=== PATIENT | female | born 1980 | race Caucasian/White ===

== ENCOUNTER 2016-12-23 17:26 | Observation (INO) | payer MEDICAID ==
[2016-12-23] MEDS ORDERED: TERBUTALINE SULFATE 1 MG/ML VIAL ONE (18:25)
[2016-12-23] MEDS ORDERED: RINGERS SOLUTION,LACTATED 1,000 ML IV ONE ×2 (18:25→18:30)
[2016-12-23] MEDS ORDERED: TERBUTALINE SULFATE 1 MG/ML VIAL SQ PRN (18:30)
[2016-12-23 20:12] LABS: APPEARANCE,URINE CLOUDY (CLEAR); GLUCOSE, URINE (UA) NEGATIVE (NEGATIVE); KETONES,URINE TRACE mg/dL (NEGATIVE); LEUKOCYTE ESTERASE ,URINE SMALL (NEGATIVE); OCCULT BLOOD,URINE NEGATIVE (NEGATIVE); PROTEIN,URINE SEE CONFIRM (NEGATIVE)
[2016-12-23 20:14] LABS: ADD UA MICROSCOPIC YES
[2016-12-23 20:26] LABS: RBC,URINE 0-2 /HPF (0-2); SQUAMOUS EPITHELIAL CELL,UR Moderate /LPF (None Seen); SULFOSALICYLIC ACID,URINE 3+ (Negative)
[2016-12-23 21:39] VITALS: BP 109/62
== END 2016-12-23 21:05 | disposition home or self-care (01) ==
LOC: 4S 17:26
PROVIDERS: ADMIT Obstetrics & Gynecology; ATTEND Obstetrics & Gynecology
DX: O62.9 Abnormality of forces of labor, unspecified (principal); O26.893 Other specified pregnancy related conditions, third trimester; M54.9 Dorsalgia, unspecified; Z3A.34 34 weeks gestation of pregnancy
CPT/HCPCS: 59025; 81001; 81002; 81050; 84156; 87086; 96372; G0378; J3105; J7120

== ENCOUNTER 2016-12-24 21:10 | Observation (INO) | payer MEDICAID ==
[~2016-12-24] VITALS: Ht 152.4 cm; Wt 79.8 kg
[2016-12-24 23:08] VITALS: BP 117/80
== END 2016-12-24 23:10 | disposition home or self-care (01) ==
LOC: 4S 21:10
PROVIDERS: ADMIT Obstetrics & Gynecology; ATTEND Obstetrics & Gynecology
DX: O26.893 Other specified pregnancy related conditions, third trimester (principal); Z3A.34 34 weeks gestation of pregnancy
CPT/HCPCS: 59025; 82575; G0378

== ENCOUNTER 2017-01-04 09:33 | Observation (INO) | payer MEDICAID ==
[2017-01-04 09:50] VITALS: BP 117/65
[2017-01-04] MEDS ORDERED: PREN1TAB80 PO (09:50)
== END 2017-01-04 11:45 | disposition home or self-care (01) ==
LOC: 4S 09:33
PROVIDERS: ADMIT Obstetrics & Gynecology; ATTEND Obstetrics & Gynecology
DX: O62.9 Abnormality of forces of labor, unspecified (principal); O09.523 Supervision of elderly multigravida, third trimester; Z3A.35 35 weeks gestation of pregnancy
CPT/HCPCS: 59025

== ENCOUNTER 2017-01-04 14:36 | Observation (INO) | payer MEDICAID ==
[~2017-01-04] VITALS: Ht 157.5 cm; Wt 79.8 kg
[~2017-01-04 14:36] MED LIST: PREN1TAB80 PO
[2017-01-12 10:55] VITALS: BP 126/76
== END 2017-01-12 11:55 | disposition home or self-care (01) ==
LOC: 4S 01-12 10:01
PROVIDERS: ADMIT Obstetrics & Gynecology; ATTEND Obstetrics & Gynecology
DX: O09.523 Supervision of elderly multigravida, third trimester (principal); Z3A.37 37 weeks gestation of pregnancy
CPT/HCPCS: 59025; 76805; G0378

== ENCOUNTER 2017-01-15 10:00 | Observation (INO) | payer MEDICAID ==
[~2017-01-15] VITALS: Ht 157.5 cm; Wt 79.8 kg
== END 2017-01-15 11:15 | disposition home or self-care (01) ==
LOC: 4S 10:00
PROVIDERS: ADMIT Obstetrics & Gynecology; ATTEND Obstetrics & Gynecology
DX: O09.523 Supervision of elderly multigravida, third trimester (principal); Z3A.38 38 weeks gestation of pregnancy
CPT/HCPCS: 59025; G0378

== ENCOUNTER 2017-01-19 10:00 | Observation (INO) | payer MEDICAID ==
[~2017-01-19] VITALS: Ht 157.5 cm; Wt 80.3 kg
== END 2017-01-19 12:20 | disposition home or self-care (01) ==
LOC: 4S 10:00
PROVIDERS: ADMIT Obstetrics & Gynecology; ATTEND Obstetrics & Gynecology
DX: O09.523 Supervision of elderly multigravida, third trimester (principal); Z3A.39 39 weeks gestation of pregnancy
CPT/HCPCS: 59025; 76805; G0378

== ENCOUNTER 2017-01-21 14:40 | Inpatient (IN) | payer MEDICAID ==
[~2017-01-21] VITALS: Ht 157.5 cm; Wt 80.7 kg
[2017-01-21] MEDS ORDERED: OXYTOCIN 30 UNITS/LACT RINGERS 500 ML IV ONE (15:26)
[2017-01-21] MEDS ORDERED: RINGERS SOLUTION,LACTATED 1,000 ML IV PRN (15:26)
[2017-01-21] MEDS ORDERED: MISOPROSTOL 25 MCG TABLET PR ONE (15:30)
[2017-01-21] MEDS ORDERED: TERBUTALINE SULFATE 1 MG/ML VIAL SQ PRN (15:30)
[2017-01-21] MEDS ORDERED: METOCLOPRAMIDE HCL 5 MG/ML 2 ML VIAL IVP PRN (15:30)
[2017-01-21] MEDS ORDERED: METHYLERGONOVINE MALEATE 0.2 MG/ML VIAL IM PRN (15:30)
[2017-01-21] MEDS ORDERED: CITRIC ACID/SODIUM CITRATE 30 ML SOLUTION UDCUP PO PRN (15:30)
[2017-01-21] MEDS ORDERED: CARBOPROST TROMETHAMINE 250 MCG/ML AMP IM PRN (15:30)
[2017-01-21] MEDS ORDERED: DINOPROSTONE 10 MG VAGINAL SUPPOSITORY VG ONE (16:00)
[2017-01-21 16:37] LABS: BASOPHILS % (AUTO) 0.3 % (0.0-2.0); EOSINOPHILS % (AUTO) 0.6 % (1.0-6.0); HEMATOCRIT 32.4 % (36-46); HEMOGLOBIN 10.9 g/dL (12.0-16.0); LYMPHOCYTES # (AUTO) 1.9 K/uL (1.0-4.8); LYMPHOCYTES % (AUTO) 15.9 % (22.0-44.0); MEAN CORPUSCULAR HEMOGLOBIN 28.7 pg (26.0-34.0); MEAN CORPUSCULAR HGB CONC 33.8 G/dL (31.0-37.0); MEAN CORPUSCULAR VOLUME 85 fL (80-100); MONOCYTES # (AUTO) 0.8 K/uL (0.1-1.0); MONOCYTES % (AUTO) 6.6 % (2.0-9.0); NEUTROPHILS % (AUTO) 76.6 % (40.0-70.0); RED BLOOD CELL COUNT(AUTO) 3.81 MIL/uL (4.00-5.20); RED CELL DISTRIBUTION WIDTH 13.8 % (11.5-14.5); WHITE BLOOD COUNT (AUTO) 11.7 K/uL (4.5-11.0)
[2017-01-21 16:42] VITALS: BP 122/72
[2017-01-21] MEDS ORDERED: INFLUENZA VIRUS VACCINE QVS 2017-18 (3YR+)/PF 60 MCG/0.5 ML SYRINGE IM ONE (16:45)
[2017-01-21] MEDS: RINGERS SOLUTION,LACTATED 1,000 ML IV SCH ×2 (17:41→19:58)
[2017-01-21] MEDS ORDERED: OXYGEN THERAPY IH SCH (20:00)
[2017-01-22] MEDS: RINGERS SOLUTION,LACTATED 1,000 ML IV SCH ×5 (00:18→20:47)
[2017-01-22] MEDS: FentaNYL CITRATE-PF 100 MCG/2 ML VIAL IVP PRN ×4 (00:27→12:14)
[2017-01-22] MEDS ORDERED: OXYTOCIN 30 UNITS/LACT RINGERS 500 ML IV PRN (06:00)
[2017-01-22] MEDS ORDERED: MISOPROSTOL 25 MCG TABLET VG SCH (08:00)
[2017-01-22] MEDS ORDERED: BUPIVACAINE HCL/PF 0.25% 30 ML VIAL ONE (13:56)
[2017-01-22] MEDS ORDERED: BUPIVACAINE HCL 0.125%/NS/PF 100 ML ED ONE (13:58)
[2017-01-22] MEDS ORDERED: BUPIVACAINE HCL 0.125%/NS/PF 100 ML ED PRN (14:48)
[2017-01-22] MEDS ORDERED: DiphenhydrAMINE HCL 50 MG/ML VIAL IVP PRN (15:00)
[2017-01-22] MEDS ORDERED: ONDANSETRON HCL 4 MG/2 ML VIAL IVP PRN (15:00)
[2017-01-23] MEDS ORDERED: LANOLIN 7 GM OINTMENT TP PRN (00:30)
[2017-01-23] MEDS ORDERED: ACETAMINOPHEN/CODEINE 300-30 MG TABLET PO PRN ×2 (00:30)
[2017-01-23] MEDS ORDERED: GLYCERIN/WITCH HAZEL LEAF 40 PADS JAR TP PRN (00:30)
[2017-01-23] MEDS ORDERED: BENZOCAINE 20%/MENTHOL 56 GM SPRAY CANISTER TP PRN (00:30)
[2017-01-23] MEDS: IBUPROFEN 600 MG TABLET PO PRN ×4 (03:11→20:06)
[2017-01-23] MEDS: MAGNESIUM HYDROXIDE SUSPENSION 30 ML UDCUP PO SCH ×2 (09:23→21:01)
[2017-01-23] MEDS: SENNA/DOCUSATE SODIUM 187-50 MG TABLET PO SCH ×2 (09:23→21:01)
[2017-01-24] MEDS: IBUPROFEN 600 MG TABLET PO PRN ×2 (03:57→10:17)
[2017-01-24] MEDS ORDERED: IBUP-2070 PO (09:43)
[2017-01-24] MEDS ORDERED: FERR-89 PO (09:44)
[2017-01-24] MEDS ORDERED: DSS100 PO (09:45)
[2017-01-24] MEDS: MAGNESIUM HYDROXIDE SUSPENSION 30 ML UDCUP PO SCH (10:15)
[2017-01-24] MEDS: SENNA/DOCUSATE SODIUM 187-50 MG TABLET PO SCH (10:16)
== END 2017-01-24 13:00 | disposition home or self-care (01) | DRG 560 ==
LOC: 4S 14:40 → OBSVTOIN 14:40
PROVIDERS: ADMIT Obstetrics & Gynecology; ATTEND Obstetrics & Gynecology
PROC: 10E0XZZ Delivery of Products of Conception, External Approach (ICD-10-PCS; principal; 2017-01-22)
PROC: 0KQM0ZZ Repair Perineum Muscle, Open Approach (ICD-10-PCS; 2017-01-22)
PROC: 0W8NXZZ Division of Female Perineum, External Approach (ICD-10-PCS; 2017-01-22)
PROC: 3E0234Z Introduction of Serum, Toxoid and Vaccine into Muscle, Percutaneous Approach (ICD-10-PCS; 2017-01-23)
DX: O70.1 Second degree perineal laceration during delivery (principal); O41.03X0 Oligohydramnios, third trimester, not applicable or unspecified; Z37.0 Single live birth; Z3A.39 39 weeks gestation of pregnancy; Z23 Encounter for immunization
CPT/HCPCS: 86850; 86900; 86901; 90471; J2590; J3010; J3490; J7120